=== PATIENT | female | born 1995 | race Caucasian/White ===

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

== ENCOUNTER 2021-05-18 07:38 | Emergency (ER) | payer BC, OTHER ==
[2021-05-18 07:46] VITALS: BP 127/89; PULSE 105; TEMP 97.9; BMI 36.0
[2021-05-19 11:08] LABS: SARS-CoV-2 NAA Not Detected (Not Detected)
== END 2021-05-18 09:13 | disposition home or self-care (01) ==
LOC: JER 07:38
DX: R05.1 Acute cough (principal)
CPT/HCPCS: 71046-TC-FY; 87651; 87804; 87807; 99284-25; C9803-CS; U0003; U0005